=== PATIENT | female | born 1950 | race Caucasian/White ===

== ENCOUNTER 2018-11-10 08:45 | Day surgery (SDC) | payer OTHER ==
--- NOTE | 2018-11-10 08:07 | PDANEPAE ---
ANE Past Medical History - Cardiovascular History Hx Hypertension: Yes Hx Arrhythmias: No Hx Chest Pain: No Hx Coronary Artery / Peripheral Vascular Disease: No Hx CHF / Valvular Disease: No Hx Palpitations: No Cardiovascular History Comment: pcp monitors bp medications - Pulmonary History Hx COPD: No Hx Asthma/Reactive Airway Disease: No Hx Recent Upper Respiratory Infection: No Hx Oxygen in Use at Home: No Hx Sleep Apnea: No Sleep Apnea Screening Result - Last Documented: Negative - Neurologic History Hx Cerebrovascular Accident: No Hx Seizures: No Hx Dementia: No Neurologic History Comment: numbness along left side of body. pain running down both legs - Endocrine History Hx Diabetes: No Endocrine History Comment: Kilo's - Renal History Hx Renal Disorders: No Renal History Comment: GFR was going down so they switched her from lisinopril and she is staying off NSAIDs - Liver History Hx Hepatic Disorders: No - Neurological & Psychiatric Hx Hx Neurological and Psychiatric Disorders: No - Cancer History Hx Cancer: Yes Cancer History Comment: breast ca. skin ca - Congenital Disorder History Hx Congenital Disorders: No - GI History Hx Gastrointestinal Disorders: No - Other Health History Other Health History: none - Chronic Pain History Chronic Pain: Yes (back and bilateral knees) - Surgical History Prior Surgeries: bilateral LIMA's. cervical fusion by sammie. knee scope. RTC repair. hammer toe repair. bunionectomy. lumpectomy l. deviated septum repair. cataracts- bilaterally. Moh's procedure ANE Review of Systems Review of Systems: - Exercise capacity METS (RN): 3 METS ANE Patient History - Allergies Allergies/Adverse Reactions: ketorolac [From Toradol] Allergy (Verified 11/05/18 14:53) Rash NSAIDS (Non-Steroidal Anti-Inflamma Allergy (Verified 11/05/18 14:53) unable to take d/t kidney issues ondansetron [From Zofran] Allergy (Verified 11/05/18 14:53) Vomiting - Home Medications Home Medications: Anastrozole [Arimidex 1 mg (*)] 1 mg PO DAILY 11/05/18 [Last Taken 11/10/18] Bromfenac Sodium [Prolensa] 1 drop EACHEYE DAILY 11/05/18 [Last Taken 11/06/18] DULoxetine [Cymbalta 20 MG (RX)] 20 mg PO BID 11/05/18 [Last Taken 11/10/18] Fluticasone Nasal [Flonase Nasal [place] (RX)] 1 sprays NASAL DAILY 11/05/18 [ Last Taken 11/09/18] Herbals/Supplements -Info Only 1 ea PO DAILY 11/05/18 [Last Taken 11/09/18] Losartan Potassium [Cozaar 50 mg (*)] 50 mg PO HS 11/05/18 [Last Taken 11/09/18] Pregabalin [Lyrica 75mg (*)] 75 mg PO BID 11/05/18 [Last Taken 11/10/18] Rizatriptan Benzoate [Maxalt] 10 mg PO DAILY PRN 11/05/18 [Last Taken 05/14/18] traMADol [Ultram 50 mg (*)] 50 mg PO Q4 PRN 11/05/18 [Last Taken 11/06/18] - Smoking Hx Smoking Status: Never smoked - Family Anes Hx Family Hx Anesthesia Complications: none ANE Labs/Vital Signs - Labs Result Diagrams: 11/10/18 09:40 - Vital Signs Height: 166.37 cm Weight: 79.379 kg ANE Physical Exam - Airway Neck exam: FROM Mallampati Score: Class 2 Mouth exam: normal dental/mouth exam - Pulmonary Pulmonary: clear to auscultation - Cardiovascular Cardiovascular: regular rate and rhythym - ASA Status ASA Status: II ANE Anesthesia Plan Anesthesia Plan: general endotracheal anesthesia
[2018-11-10] MEDS ORDERED: GABAPENTIN 300 MG CAP PO ONE (08:58)
[2018-11-10] MEDS ORDERED: ceFAZolin 2 GM/DEXTROSE 100 ML IV ONE (08:58)
[2018-11-10] MEDS ORDERED: ACETAMINOPHEN 500 MG TAB PO ONE (08:58)
[2018-11-10] MEDS ORDERED: LR 1,000 ML IV ONE (08:59)
--- NOTE | 2018-11-10 09:03 | PDHPUP ---
History & Physical Update H&P update statement: This history and physical update is based on an assessment of the patient which was completed after admission or registration (within 24 hours), but prior to the surgery/procedure. H&P update: H&P reviewed & patient examined, no change in patient's condition since H&P completed
[2018-11-10] MEDS ORDERED: THROMBIN (BOVINE) 20,000 UNIT VIAL TP ONE (09:06)
[2018-11-10] MEDS ORDERED: CHLORHEXIDINE GLUC HIBICLENS 118 ML BTL TP ONE (09:06)
[2018-11-10] MEDS ORDERED: SURGIFLO MATRIX KIT WITH THROMBIN 8 ML TP ONE (09:06)
[2018-11-10] MEDS ORDERED: BUPIVACAINE/EPI 0.25% 30 ML SDV ONE (09:07)
[2018-11-10] MEDS ORDERED: THROMBIN (BOVINE) 5,000 UNIT VIAL TP ONE (09:07)
[2018-11-10] MEDS ORDERED: AVITENE POWDER 1 GM JAR TP ONE (09:07)
[2018-11-10] MEDS ORDERED: BACITRACIN 50,000 UNITS/10 ML SYR IRR ONE (09:08)
[2018-11-10 09:49] LABS: PLATELET COUNT 272 10^3/uL (150-400)
[2018-11-10] MEDS ORDERED: SCOPOLAMINE HYDROBROMIDE 1 MG/3 DAYS PATCH TD ONE (09:58)
[2018-11-10] MEDS ORDERED: MIDAZOLAM 2 MG/2 ML VIAL IVP ONE (10:06)
[2018-11-10] MEDS ORDERED: PROPOFOL/EMULSION 500 MG/50 ML BOTTLE IV ONE ×2 (10:14→10:54)
[2018-11-10] MEDS ORDERED: fentaNYL 100 MCG/2 ML INJ ONE ×2 (10:14→12:17)
[2018-11-10] MEDS ORDERED: REMIFENTANIL HCL 1 MG VIAL ONE (10:14)
[2018-11-10] MEDS ORDERED: GLYCOPYRROLATE 0.2 MG/1 ML VIAL ONE (10:51)
[2018-11-10] MEDS ORDERED: DEXAMETHASONE 4 MG/ML VIAL ONE (10:52)
[2018-11-10] MEDS ORDERED: ROCURONIUM 50 MG/5 ML VIAL ONE (10:52)
[2018-11-10] MEDS ORDERED: METOCLOPRAMIDE 10 MG/2 ML VIAL ONE (10:54)
[2018-11-10] MEDS ORDERED: ePHEDrine SULFATE 25 MG/5 ML SYR ONE ×2 (11:02)
[2018-11-10] MEDS ORDERED: PHENYLEPHRINE HCL 100 MCG/ML SYR ONE (11:05)
[2018-11-10] MEDS ORDERED: ACETAMINOPHEN 500 MG TAB PO PRN (11:26)
[2018-11-10] MEDS ORDERED: DIAZEPAM 5 MG/ML 1 ML SYR IVP PRN (11:26)
[2018-11-10] MEDS ORDERED: HYDROmorphONE/DILAUDID 2 MG/ML INJ IVP PRN (11:26)
[2018-11-10] MEDS ORDERED: NALOXONE HCL 0.4 MG/ML INJ IVP PRN (11:26)
[2018-11-10] MEDS ORDERED: ALBUTEROL 3 ML DEYVIAL IH PRN (11:26)
[2018-11-10] MEDS ORDERED: oxyCODONE IR 5 MG TAB PO PRN (11:26)
[2018-11-10] MEDS ORDERED: LR 500 ML IV PRN (11:26)
[2018-11-10] MEDS ORDERED: ONDANSETRON 4 MG/2 ML VIAL IVP PRN (11:26)
[2018-11-10] MEDS ORDERED: PROMETHAZINE HCL 25 MG/ML INJ IVP PRN (11:26)
[2018-11-10] MEDS ORDERED: MEPERIDINE 25 MG/0.5 ML AMP IVP PRN (11:26)
[2018-11-10] MEDS ORDERED: LABETALOL HCL 5 MG/ML 20 ML MDV IVP PRN (11:26)
[2018-11-10] MEDS ORDERED: METOCLOPRAMIDE 10 MG/2 ML VIAL IVP PRN (11:26)
[2018-11-10] MEDS ORDERED: DEXAMETHASONE 4 MG/ML VIAL IVP PRN (11:26)
[2018-11-10] MEDS ORDERED: SUGAMMADEX SODIUM 200 MG/2 ML VIAL IVP ONE (11:58)
[2018-11-10] MEDS ORDERED: METHOCARBAMOL 1,000 MG in NS 50 ML IV ONE (12:09)
--- NOTE | 2018-11-10 12:09 | POSTOPPROG ---
Post Op Note Date of Operation: 11/10/18 Surgeon: Reji Forde Dye Beck Reel Operator: Golden. PAC Anesthesia: GET(General Endotracheal) Pre-op Diagnosis: lumbar stenosis Post-op Diagnosis: lumbar stenosis Indication: lumbar stenosis Procedure: L2/3 laminectomy and decompression Inf/Abcess present in the surg proc area at time of surgery?: No EBL: Minimal PA Addendum - Addendum .: S: Resting comfortably O: NAD A&Ox3 MAEx4 5/5 and equal in BUE and BLE A/p 68y/o female s/p lumbar stenosis -Advance diet as tolerated -Optimize pain management -If pain under control can d/c home from the PACU -Please notify NS with any change in neuro/motor exam
[2018-11-10] MEDS ORDERED: HYDROmorphONE/DILAUDID 2 MG/ML INJ ONE (12:17)
[2018-11-10] MEDS: fentaNYL 100 MCG/2 ML INJ IVP PRN ×2 (12:20→12:26)
--- NOTE | 2018-11-10 12:20 | GOP ---
DATE OF OPERATION: 11/10/2018 SURGEON: Reji Forde MD [employer] POLICE OFFICER: Yoli Franks, SHIRLEY. ANESTHESIA: General. PREOPERATIVE DIAGNOSIS: 1. L2-L3 severe spinal stenosis. 2. Lower extremity claudication radiculopathy. 3. Treatment refractory to nonoperative intervention. POSTOPERATIVE DIAGNOSIS: 1. L2-L3 severe spinal stenosis. 2. Lower extremity claudication radiculopathy. 3. Treatment refractory to nonoperative intervention. PROCEDURE PERFORMED: 1. Decompressive laminectomy with bilateral medial facetectomies, L2-L3. 2. Use of intraoperative fluoroscopy, less than 1 hour physician time. 3. Use of neuromonitoring. 4. Use of operative microscope. FINDINGS: per imaging SPECIMENS: None. ESTIMATED BLOOD LOSS: 20 mL. INDICATIONS: The patient is a very pleasant 68-year-old woman who presented to my office with worsening lower extremity claudication. She had evidence of severe spinal stenosis at the L2-3 level. After discussion of the risks, benefits, and alternatives and after failing nonoperative interventions, we decided to proceed forth with surgery as described above. DESCRIPTION OF PROCEDURE: The patient was brought to the operating theater and underwent general endotracheal anesthesia without complications. She had Venodynes, RAMILA hose and the appropriate lines placed by Anesthesia. She was flipped prone onto the Da[place]an table. All bony processes inspected and padded. The lower lumbar region was prepped and draped in the usual sterile surgical fashion. A time-out was completed per protocol. The patient received antibiotics within 1 hour of incision. Using lateral fluoroscopy and a spinal needle, we picked our entry point at the L2-3 level. This was marked in the midline. The incision was infiltrated with Marcaine with epinephrine. The incision was taken down with the scalpel blade and using monopolar, taken down midline through the lumbodorsal fascia and a subperiosteal dissection carried out to the medial facet joints at L2-L3. Deep retractors were placed to maintain our exposure. We confirmed our level using lateral fluoroscopy. The microscope was brought into field to assist with microscopic dissection and to maintain illumination and magnification. Using a combination of the bur tip on the drill bit, Kerrison punches, Leksell rongeur, we completed decompressive laminectomy with bilateral medial facetectomies. Upon completing this, we felt everything was well decompressed manually on palpation. We obtained hemostasis with the bipolar. The wound was irrigated copiously with bacitracin irrigation. We then closed the wound in multiple layers including Vicryl sutures, deep layers and Dermabond for the skin. The patient's wounds were dressed sterilely. She was then flipped supine onto the transfer cart, where she was awakened, extubated and taken to the recovery room in stable condition. There were no complications and no noted changes on neuromonitoring throughout the procedure. COMPLICATIONS: None. /[id number]/MODL MTDD
[2018-11-10] MEDS ORDERED: HYDROCODONE/APAP 5/325 TAB ONE ×2 (13:03→14:12)
--- NOTE | 2018-11-10 13:03 | POSTANESTH ---
Post Anesthetic Evaluation Cardiovascular Status: Normal, Stable Respiratory Status: Normal, Stable Level of Consciousness/Mental Status: Can Participate in Eval Pain Control: Adequate, Prn Tx Ordered Nausea/Vomiting Control: Adequate, Prn Tx Ordered Complications Possibly Related to Anesthesia: None Noted
[2018-11-10] MEDS: HYDROCODONE/APAP 5/325 TAB PO PRN ×2 (13:04→14:14)
[2018-11-10 14:06] VITALS: BP 134/80
== END 2018-11-10 14:45 | disposition home or self-care (01) ==
LOC: UNDOADMOB 08:45 → F3N 08:45 → FSGY 08:45 → EDSTATUS 10:30 → UNDODISOB 14:45 → FSGY 14:45
PROVIDERS: ATTEND Neurological Surgery
DX: M48.062 Spinal stenosis, lumbar region with neurogenic claudication (principal); M51.17 Intervertebral disc disorders with radiculopathy, lumbosacral region; E06.3 Autoimmune thyroiditis; Z85.3 Personal history of malignant neoplasm of breast; Z85.828 Personal history of other malignant neoplasm of skin; Z96.643 Presence of artificial hip joint, bilateral; Z98.1 Arthrodesis status
CPT/HCPCS: J0690; J1100; J1170; J2250; J2370; J2704; J2765; J2800; J3010